=== PATIENT | female | born 2000 ===

== ENCOUNTER 2023-03-13 20:37 | Emergency (ER) | payer MEDICAID, SELFPAY ==
[2023-03-13 20:43] VITALS: BP 122/86
--- NOTE | 2023-03-13 21:43 | ED.GENMED ---
History of Present Illness
General
Chief Complaint: Headache
Source: patient
Exam Limitations: none
Time Seen by Provider: 03/13/23 21:33
Nursing documentation reviewed up to this point in time: agreed with
Travel History
Have you had any contact with someone who has COVID-19?: No
Do you have any symptoms of coronavirus? Fever > 100 degrees, chills, cough, shortness of breath, sore throat, loss of taste or smell, muscle aches, or headache?: No
History of Present Illness
History of Present Illness:
Patient without any significant past medical history, presents to ED secondary to 3-day history of intermittent dizziness, nausea, generalized body ache, joint pain, and nasal congestion. Denies vomiting or diarrhea. Denies headache. Denies loss
of sensation or weakness. Denies loss of appetite. Denies sick contact. Denies recent travel. Denies recent change in diet or medications. Patient has taken DayQuil and ibuprofen with improvement in symptoms.
Review of Systems
Review of Systems
Allergies reviewed?: Yes
All Other Systems: ROS reviewed and negative except as documented in HPI and ROS
Constitutional: Reports no symptoms; Denies fever
EENT: Reports other (Nasal congestion)
Respiratory: Reports no symptoms
Cardiac: Reports no symptoms
ABD/GI: Reports nausea; Denies vomiting or diarrhea
: Reports no symptoms
Musculoskeletal: Reports muscle pain
Skin: Reports no symptoms; Denies rash
Neurological: Reports dizzy; Denies headache or weakness
Phy Exam
Physical Exam
Physical Exam:
Physical Exam
General: no apparent distress, not acutely ill. afebrile
Head: nc/at. eomi
Neck: supple. no meningeal signs.
Heart: s1/s2 regular rate and rhythm, no murmur. equal radial pulses.
Lungs: no acute respiratory distress. clear bilaterally
Abdomen: normal bowel sounds. not tender. no cva tenderness.
Neuro: alert and oriented. no focal neurological deficits
Skin: no rash
Psychiatric: well kept. interactive and cooperative
Extremities: no edema. no calf tenderness.
Course
Orders/Labs/Results
Orders:
Orders
03/13/23 21:48
COVID-19 Antigen Urgent
Source: Nasal Swab
Comprehensive Metabolic Panel Urgent
Lyme Progressive Urgent
Monotest Urgent
Abnormal Lab Results
03/13/23
21:48
BUN 18 H mg/dl
(7-17)
03/13/23 21:48
Vital Signs
Initial and Last Documented VS:
Initial Vital Signs
Temp Pulse Resp BP Pulse Ox
97.9 F 68 20 122/86 99
03/13/23 20:43 03/13/23 20:43 03/13/23 20:43 03/13/23 20:43 03/13/23 20:43
Last Documented Vital Signs
Temp Pulse Resp BP Pulse Ox
97.9 F 86 20 121/86 98
03/13/23 20:43 03/13/23 21:49 03/13/23 20:43 03/13/23 21:49 03/13/23 21:49
MDM/Problems Addressed
MDM/Problems Addressed:
History and exam consistent with likely flulike symptoms. However, patient is afebrile, hemodynamically stable, and nontoxic-appearing, without any evidence of gross dehydration. Patient will be treated symptomatically with continued hydration at
home along with Tylenol/Motrin for full body ache. Patient advised to follow-up with PCP for evaluation, or return to ED with worsening symptoms. Patient expresses understanding at time of discharge, to the care of her .
COVID test, Lyme titer, monotest pending at time of discharge.
*Critical Care Note
Total Time (30-74mins, 75-104mins- exclusive of procedures): Not Applicable
ED Attending Note
-
Portions of this chart may have been created with voice recognition software.� Occasional wrong word or��sound alike� substitutions may have occurred due to the inherent limitations of voice recognition software.
Discharge Plan
Departure
Patient Disposition: Home (Routine Discharge)
Date of Disposition: 03/13/23
Time of Disposition: 21:43
Patient with high blood pressure during this ER visit?: Yes
Condition: Good
Discharge Problem:
Viral illness
Instructions: Viral Syndrome (DC)
Prescriptions:
New
ondansetron 4 mg Tablet,Disintegrating
4 mg PO TIDPRN PRN (Reason: nausea/vomiting) Qty: 12 0RF
No Action
PNV cmb#95-ferrous fumarate-FA [] 1 EACH tablet
1 ea PO DAILY
acetaminophen 325 MG tablet
650 mg PO Q4HPRN PRN (Reason: mild pain) 0RF
ibuprofen 600 MG tablet
600 mg PO Q4HPRN PRN (Reason: moderate pain/cramps) 0RF
Referrals:
NONE,* [Family Provider] -
Activity Restrictions/Additional Instructions:
As discussed, please follow up with your primary care physician with any further concerns. Your prescription has been sent electronically to [facility] pharmacy in [place].
Interventions
Interventions:
*Risk Screen - Suicide Last Done: 03/13/23 20:43
*General Assessment Last Done: 03/13/23 21:56
*Neglect/Abuse Screening Last Done: 03/13/23 20:43
*ED COVID-19 Vaccine History Last Done: 03/13/23 21:56
*Nursing Disposition Last Done: 03/13/23 21:56
ED- Neurological Assessment Last Done: 03/13/23 21:56
Discharge Date and Time
Discharge Date/Time: 03/13/23 21:56
[2023-03-13 21:49] VITALS: BP 121/86
[2023-03-13 22:11] LABS: Monotest Negative (Negative)
[2023-03-13 22:18] LABS: COVID-19 Antigen Negative (Negative)
[2023-03-13 22:19] LABS: ALT (SGPT) 17 U/L (0-35); AST (SGOT) 23 U/L (14-36); Albumin 4.4 g/dl (3.5-5.0); Alkaline Phosphatase 67 U/L (38-126); Blood Urea Nitrogen 18 mg/dl (7-17); Calcium 9.7 mg/dl (8.4-10.2); Carbon Dioxide 29 mmol/L (22-30); Chloride 101 mmol/L (98-107); Glucose 71 mg/dl (70-99); Sodium 138 mmol/L (135-145); Total Bilirubin 0.4 mg/dl (0.2-1.3); Total Protein 7.4 g/dl (6.3-8.2); eGFR > 60.00
[2023-03-14 16:30] LABS: Lyme Antibody Screen, EIA Negative (Negative)
== END 2023-03-13 21:56 | disposition home or self-care (01) ==
LOC: EMR 20:37
PROVIDERS: EMERGENCY PHYSICIAN Emergency Medicine
DX: B34.9 Viral infection, unspecified (principal)
CPT/HCPCS: 99283; 80053; 86308; 86618; 87811